=== PATIENT | male | born 2000 | race Caucasian/White ===

== ENCOUNTER 2024-11-16 15:03 | Outpatient (CLI) | payer BC ==
[~2024-11-16 15:03] MED LIST: Iopamidol 370 76% 100 ML VIAL ONE
== END 2024-11-16 15:04 | disposition home or self-care (01) ==
LOC: CT 15:03
PROVIDERS: ATTEND Internal Medicine
DX: R07.81 Pleurodynia (principal); Q25.49 Other congenital malformations of aorta
CPT/HCPCS: 71275; 74018